=== PATIENT | male | born 1955 | race Caucasian/White ===

== ENCOUNTER → 2017-02-22 | Outpatient (CLI) | payer MEDICARE, MEDICAID ==
[~2017-02-22] MED LIST: AMBIEN DPS10 MG GT; CARDIZEM30 MG GT; DELTASONE DPS10 MG GT; DUONEB DPS3 ML IH; KENALOG 0.1% D454 GM TP; LASIX DPS40 MG GT; LIORESAL DPS20 MG GT; LOPRESSOR DPS50 MG GT; MAALOX DPS30 ML GT; NEURONTIN250 MG/5 M GT; PROZAC DPS10 MG GT; SURFAK DPS240 MG GT; TYLENOL DP650 MG/20. GT; ULTRAM DPS50 MG GT; VITAMIN D5000 UNI1 GT; ZANAFLEX4 MG GT; [UNRECOGNIZED DRUG - OTHER] GT; [UNRECOGNIZED DRUG - OTHER] GT
== END | disposition home or self-care (01) ==
LOC: RAD.S 02-15 12:30
DX: R13.10 Dysphagia, unspecified (principal)